=== PATIENT | male | born 1955 | race Caucasian/White ===

== ENCOUNTER 2023-09-23 11:50 | Outpatient (CLI) | payer MEDICARE, OTHER | END 2023-09-23 23:59 | disposition short-term general hospital (02) | LOC: EMS 11:50 | DX: R06.02 Shortness of breath (principal); R05.9 Cough, unspecified; R39.89 Other symptoms and signs involving the genitourinary system | CPT/HCPCS: A0425; A0427 ==

== ENCOUNTER 2024-05-10 14:27 | Outpatient (CLI) | payer MEDICARE, OTHER ==
--- NOTE | 2024-05-10 20:48 | SLEEP CARE CONSULTATION ---
Information from patient questionnaire entered by Evangelista Betancourt. I have reviewed and concur with the information entered by Evangelista Betancourt. This document represents the service I personally performed and the decisions made by me, Mike Marinelli MD, [facility]. History of Present Illness Service Date and Time: 05/10/2024 1427 Reason for Visit: New patient Date of Onset: 30+YRS Usual bedtime: 2200 Time it takes to fall asleep: VARIES Snores at night: Yes Observed to quit breathing while asleep: Yes Sleeps alone due to snoring: No Number of times waking at night: 4-5 Reasons for waking at night: reports: Gasping for air, Bathroom, Other (UNKNOWN) Toss, Turn, or Twitch while sleeping: Yes Recalls having dreams: Yes Usually gets out of bed at: [id number] Feels refreshed in the morning: No Morning headache: No Sleepy or fatigued during the day: Yes Ever fallen asleep while driving: No Takes day naps: Yes Dreams during day naps: No Prior sleep studies: Yes Year and Where: [facility] 2010 Additional HPI information: Mr. Fang was diagnosed with very severe (AHI 75.5) obstructive sleep apnea- hypopnea syndrome in 2006 and returned today for follow-up of his CPAP therapy. He was using his [employer] DreamStation autoCPAP regularly until he was hospitalized for COVID last September. After he got out, he felt that the machine did not produce enough air and he had to take it off. He has not registered his machine for a replacement yet. He wore ResMed P10 nasal pillows. Since 2006, he has lost 50 lbs. He got his supplies from [employer]. 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 Patient is and lives in [place]. Have you smoked in the past 12 months: Yes Cigarettes per day (20/pack): 20 Years of smokin Quit date: 2022 Smoking Pack Years: 35.0 Alcohol use: Yes Alcohol amount and frequency: RARELY Caffeine use: Yes Caffeine amount and frequency: 7-8 CUPS DAILY Family History Family history of sleep disordered breathing: No Allergies and Home Medications Known drug allergies: No Drug allergies reviewed: Yes Home medication list reviewed: Yes Allergy and home medication list: Allergies No Known Drug Allergies Allergy (Verified 05/07/24 11:41) Review of Systems Weight loss over past 5 years: 30 Cardiovascular: reports: high blood pressure, irregular heart rate or pulse, have to sleep sitting up Respiratory: reports: shortness of breath, sputum production Gastrointestinal: reports: difficulty swallowing Urinary: reports: frequency Neurological: denies: headaches, seizure, head trauma, disorientation, speech dysfunction, gait or balance problems, fainting or unconsciousness, other Psychiatric: denies: Attention Deficit Hyperactivity, anxiety, depression, mood disorder, claustrophobia, other Ear/Nose/Throat: reports: nasal congestion, sinus problems, injury to nose, wis dom teeth removed Endocrine: reports: too hot or cold, increased urination Musculoskeletal: reports: joint pain, neck pain, back pain, joint swelling, muscle pain or cramping, mobility problems Immunologic: reports: sneezing Physical Exam Vital signs obtained and entered by: EVANGELISTA Alvarado MA Blood Pressure: 149/101 (LEFT ARM) Cuff size: ADULT SMAL Heart Rate: 107 O2 Saturation: 94 Height: 5 ft 8.5 in Weight: 141 lb 12.8 oz Body Mass Index: 21.2 BMI Classification: Normal Neck circumference: 14.5 Mood/affect: Normal HEENT: No craniofacial malformation Nostrils: patent to airflow Turbinates: normal Septum: midline Mouth and throat: narrow oropharynx Soft palate: long Hard palate: normal Uvula: normal Uvula visualization: 50% Mallampati Class II Tongue: normal in size Tonsils: absent bilaterally Chin and jaw: normal size and position Neck: normal w/o lymphadenopathy or thyromegaly Heart: regular rate and rhythm Lungs: clear bilaterally Extremities: no edema or clubbing Neurologic: intact Impression and Plan IMPRESSION: 1. Obstructive Sleep Apnea-Hypopnea Syndrome, very severe, presently untreated. His [employer] DreamStation autoCPAP is very old and is recalled. Because he has not used his machine for a long time, we will need a new in-laboratory polysomnography to justify ordering him a new one. Besides, he has lost a lot of weight and may not have significant sleep-disordered breathing now. A manual CPAP/BiPAP titration study will also be ordered to find the optimal pressure setting because he was not able tolerate the current pressure setting. PLAN: 1. Schedule an in-laboratory polysomnography and manual CPAP/BiPAP titration study. * Return for follow up after the sleep studies. I will order him all new equipment then. Plan: in-lab PSG and COAO titration Visit Type: In Office Time Spent with Patient (minutes): 15 Provider Statement: I spent 100% of the Face to Face Visit with the patient with greater than 50% spent counseling the patient and coordination of care.
[2024-05-10 20:55] VITALS: BP 149/101; O2SAT 94
== END 2024-05-10 14:28 | disposition home or self-care (01) ==
LOC: SC 14:27
PROVIDERS: ATTEND Internal Medicine Pulmonary Disease
DX: G47.33 Obstructive sleep apnea (adult) (pediatric) (principal); Z86.16 Personal history of COVID-19; Z87.891 Personal history of nicotine dependence
CPT/HCPCS: 99202; G0463; 99212

== ENCOUNTER 2024-05-12 19:18 | Outpatient (CLI) | payer MEDICARE, OTHER | END 2024-05-12 19:19 | disposition home or self-care (01) | LOC: SC 19:18 | PROVIDERS: ATTEND Internal Medicine Pulmonary Disease | DX: G47.33 Obstructive sleep apnea (adult) (pediatric) (principal) | CPT/HCPCS: 95810 ==

== ENCOUNTER 2024-06-01 19:57 | Outpatient (CLI) | payer MEDICARE, OTHER | END 2024-06-01 19:58 | disposition home or self-care (01) | LOC: SC 19:57 | PROVIDERS: ATTEND Internal Medicine Pulmonary Disease | DX: G47.33 Obstructive sleep apnea (adult) (pediatric) (principal); I49.9 Cardiac arrhythmia, unspecified | CPT/HCPCS: 95811 ==

== ENCOUNTER 2024-06-16 09:40 | Outpatient (CLI) | payer MEDICARE, OTHER ==
[2024-06-16 10:22] VITALS: BP 139/92; O2SAT 97
--- NOTE | 2024-06-16 10:39 | SLEEP CARE CONSULTATION ---
History of Present Illness Service Date and Time: 06/16/2024 0940 Initial [place] Sleepiness Scale score: 14 (05/10/24) Current [place] Sleepiness Scale score: 11 Additional HPI information: MARGARETTE GRACIA returns for follow up and results of the recently performed polysomnography done on 05/12/2024. He also had a manual CPAP titration study performed on 06/01/2024. I explained that the optimal CPAP pressure is 7 cmH2O. I explained the pathophysiology behind obstructive sleep apnea. We then spent quite a bit of time discussing different treatment options. For mild obstructive sleep apnea, surgery and oral appliance are alternatives to nasal CPAP therapy but in moderate or severe cases, nasal CPAP is the most effective and reliable treatment. Because apnea is primarily in supine position, then positional management therapy could be effective. Methods discussed such as positioning with pillows, using a T-shirt with tennis balls in the back or commercial products that have a pillow format on back to prevent supine sleep. After some discussion, the patient will continue nasal autoCPAP set at 4-8 cmH20 will be ordered with rationale explained. A manual titration study will be ordered if unable to find optimal pressure with office adjustments. He is a past CPAP user and would like to resume CPAP therapy. The patient was instructed to call the CPAP supplier to discuss any mechanical problem that may occur. If the mask given is uncomfortable or is difficult to keep on through the night even with adjustment, contact the CPAP supplier as many will replace with another mask style if notified before 30 days. If snoring or perceives is not getting enough air or too much air from the machine, notify this office. Patient does not drink alcohol. Patient was cautioned about risks of drowsy driving until sleepiness symptoms resolve. Patient denies drowsy driving. Sleep Study - Results Polysomnography/Home Sleep Study results: Diagnostic study/PSG: IMPRESSION: The quality of the study is good. The patient had reduced sleep efficiency due to prolonged awakenings in the second half of the night.. The sleep architecture was abnormal for sleep fragmentation and reduced amount of time spent in REM and slow wave sleep (N3). Respiratory monitoring showed moderate obstructive sleep apnea-hypopnea (AHI = 17.1) associated with frequent arousals, oxyhemoglobin desaturation and mild hypoxia (jairo oxygen saturation of 87%). The respiratory events occurred almost exclusively during supine sleep (supine AHI = 21.3; non-supine = 1.83). Snore was moderate in intensity. There was no significant periodic leg movement of sleep. Cardiac rhythm was irregular, possibly atrial flutter or intermittent junctional rhythm. No abnormal behavior (parasomnia) observed during the night. Titration study: IMPRESSION: The quality of the study is good. CPAP was initiated at 6 cmH2O and titrated up to CPAP at 7 cmH2O. CPAP at 7 cmH2O appeared to be optimal (AHI of 0.4 per hour on the pressure). There was supine REM sleep on the pressure. Oxygen saturation was normal throughout the night. The patient appeared to have tolerated positive airway pressure therapy well. 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 The sleep architecture was relatively normal considering the first-night effect. There was no periodic leg movement of sleep. Cardiac rhythm was irregular and slow, possibly A-V block. No abnormal behavior (parasomnia) observed during the night. Allergies and Home Medications Known drug allergies: No Drug allergies reviewed: Yes Home medication list reviewed: Yes (no changes) Allergy and home medication list: Allergies No Known Drug Allergies Allergy (Verified 05/10/24 14:39) Review of Systems Review of systems same as previous: Yes (no changes) Physical Exam Vital signs obtained and entered by: Lisa Alvarado MA Blood Pressure: 139/92 Heart Rate: 94 O2 Saturation: 97 Height: 5 ft 10 in Weight: 141 lb 3.2 oz Body Mass Index: 20.2 BMI Classification: Normal Impression and Plan 1. Obstructive Sleep Apnea-Hypopnea Syndrome, moderate, with lowest oxygen saturation of 87%. Positive pressure therapy could benefit hypertension. As mentioned above, the patient will be started on nasal autoCPAP therapy with pressure set at 4-8 cmH2O. Compliance guidelines also reviewed. A copy of compliance guidelines will be given for reference at check out. Because the apnea is more severe supine, I instructed to avoid sleeping supine using pillow positioning or elevating his head until able to start CPAP use. He is currently sleeping with his head elevated to help him to sleep because he has pain on his sides due to multiple shoulder surgeries. 2. Cardiac arrhythmia. He is being monitored and treated by cardiology. They are looking at a possible pacemaker implant. 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 He is to see him for further monitoring after he starts using his CPAP again. * Nasal auto CPAP therapy, pressure at 4-8 cm H2O. * Avoid alcohol consumption near bedtime. * Avoid supine sleep until using CPAP. * The patient is again cautioned about driving until sleepiness completely resolves. * Return one month after CPAP obtained. I will assess response to therapy and compliance at that time. Counseling Topics: Sleeping position Prescriptions: Auto CPAP Follow up with Sleep Care in: other (compliance visit) Visit Type: In Office Time Spent with Patient (minutes): 32 Provider Statement: I spent 100% of the Face to Face Visit with the patient with greater than 50% spent counseling the patient and coordination of care.
== END 2024-06-16 09:41 | disposition home or self-care (01) ==
LOC: SC 09:40
PROVIDERS: ATTEND Nurse Practitioner Family
DX: G47.33 Obstructive sleep apnea (adult) (pediatric) (principal); I49.9 Cardiac arrhythmia, unspecified
CPT/HCPCS: 99214; G0463; 99212